=== PATIENT | male | born 1955 | race Two or more races ===

== ENCOUNTER 2019-05-19 07:40 | Emergency (ER) | payer MEDICARE ==
[~2019-05-19] VITALS: Ht 160 cm; Wt 58.0 kg
--- NOTE | 2019-05-19 08:18 | PHYS DOC ---
Adult General Chief Complaint Chief Complaint: BACK PAIN OR INJURY HPI HPI Patient is a 64 year old speaking male who presents secondary to complaint of back pain in the cervical and thoracic spine. He reportedly fell down 13 stairs approximately 1 week ago. He also reports feeling weak. He denies chest pain or shortness of breath, other extremity pain, numbness tingling or weakness, saddle anesthesia or loss of bowel or bladder control. Review of Systems Review of Systems All other systems were reviewed and found to be within normal limits, except as documented in this note. Physical Exam Physical Exam Constitutional: Well developed, well nourished, no acute distress, non-toxic appearance. [] HENT: Normocephalic, atraumatic, bilateral external ears normal, oropharynx moist, no oral exudates, nose normal. [] Eyes: PERRLA, EOMI, conjunctiva normal, no discharge. [] Neck: Normal range of motion, no tenderness, supple, no stridor. [] Cardiovascular:Heart rate regular rhythm, no murmur [] Lungs & Thorax: Bilateral breath sounds clear to auscultation [] Abdomen: Bowel sounds normal, soft, no tenderness, no masses, no pulsatile masses. [] Skin: Warm, dry, no erythema, no rash. [] Back: TTP cervical and thoracic spine. Extremities: No tenderness, no cyanosis, no clubbing, ROM intact, no edema. [] Neurologic: Alert and oriented X 3, normal motor function, normal sensory function, no focal deficits noted. [] Psychologic: Affect normal, judgement normal, mood normal. [] Current Patient Data Vital Signs Vital Signs Date Time Temp Pulse Resp B/P (MAP) Pulse Ox O2 Delivery O2 Flow Rate FiO2 05/19/19 07:47 99.4 95 18 140/71 (94) 94 Room Air 99.4 EKG EKG [] Radiology/Procedures Radiology/Procedures []THORACIC SPINE 3V, CERVICAL SPINE 5V History: Upper back pain. Cervical pain. Trauma. Technique: 5 views cervical spine and 2 views thoracic spine. Comparison: None. Findings: Cervical spine: Grade 1 anterolisthesis C5 on C6 and C6 on C7. Moderate multilevel degenerative disc changes most prominent C4-C5 and C5-C6. Normal vertebral body height. No fracture. Prevertebral soft tissues unremarkable. Normal alignment C1 on C2. Vascular calcifications. Chronic anterior wedging C7. C7-T1 articulation not well seen on lateral view due to overlying structures. Carious dentition. Thoracic spine: Normal vertebral body height and alignment. No fracture. Impression: 1. No acute osseous abnormality. Given history of trauma, if persistent clinical concern CT can further evaluate. 2. Moderate multilevel cervical spondylosis. 3. Grade 1 anterolisthesis C5 on C6 and C6 on C7. Course & Med Decision Making Course & Med Decision Making Pertinent Labs and Imaging studies reviewed. (See chart for details) 0817: This patient is seen for back pain after a fall on Wednesday. Will get cervical and thoracic x-rays. He is also encouraged to push fluids and he has given strict return precautions if he develops shortness of breath he is to return to the ER. Dragon Disclaimer Victor Hugo Disclaimer This electronic medical record was generated, in whole or in part, using a voice recognition dictation system. Departure Departure Impression: Primary Impression: Fall Additional Impressions: Cervical strain Thoracic myofascial strain Disposition: HOME, SELF-CARE Condition: STABLE Patient Instructions: Muscle Strain Additional Instructions: Please push fluids. Return for worsening symptoms or follow up with your doctor. Scripts Tizanidine Hcl (TIZANIDINE HCL) 4 Mg Tablet 4 MG PO TID PRN for MUSCLE SPASMS for 5 Days, #15 TAB Prov: NILE RINALDI DO 05/19/19 Problem Qualifiers NILE RINALDI DO May 19, 2019 08:18
[2019-05-19 08:50] VITALS: BP 142/73
--- NOTE | 2019-05-19 09:00 | RAD ---
THORACIC SPINE 3V, CERVICAL SPINE 5V History: Upper back pain. Cervical pain. Trauma. Technique: 5 views cervical spine and 2 views thoracic spine. Comparison: None. Findings: Cervical spine: Grade 1 anterolisthesis C5 on C6 and C6 on C7. Moderate multilevel degenerative disc changes most prominent C4-C5 and C5-C6. Normal vertebral body height. No fracture. Prevertebral soft tissues unremarkable. Normal alignment C1 on C2. Vascular calcifications. Chronic anterior wedging C7. C7-T1 articulation not well seen on lateral view due to overlying structures. Carious dentition. Thoracic spine: Normal vertebral body height and alignment. No fracture. Impression: 1. No acute osseous abnormality. Given history of trauma, if persistent clinical concern CT can further evaluate. 2. Moderate multilevel cervical spondylosis. 3. Grade 1 anterolisthesis C5 on C6 and C6 on C7. Electronically signed by: Malik Albrecht DO (05/19/2019 8:57 AM) [id number]
[2019-05-19] MEDS ORDERED: TIZA4TAB2 PO (09:08)
== END 2019-05-19 09:13 | disposition home or self-care (01) ==
LOC: ER 07:40
DX: S16.1XXA Strain of muscle, fascia and tendon at neck level, initial encounter (principal); S29.012A Strain of muscle and tendon of back wall of thorax, initial encounter; R53.1 Weakness; R06.02 Shortness of breath; W10.8XXA Fall (on) (from) other stairs and steps, initial encounter; Y93.89 Activity, other specified; Y92.89 Other specified places as the place of occurrence of the external cause; Y99.8 Other external cause status
CPT/HCPCS: 72050; 72072; 82962; 99284; 99285

== ENCOUNTER 2020-07-30 00:21 | Emergency (ER) | payer MEDICARE, MEDICAID ==
[~2020-07-30] VITALS: Ht 177.8 cm; Wt 75.0 kg
[~2020-07-30 00:21] MED LIST: TIZA4TAB2 PO
[2020-07-30 01:14] LABS: BASO # 0.1 x10^3/uL (0.0-0.2); BASO % 1 % (0-3); EOS # 0.3 x10^3/uL (0.0-0.7); EOS % 5 % (0-3); HEMATOCRIT 33.7 % (39.0-53.0); HEMOGLOBIN 11.5 g/dL (13.0-17.5); LYMPH # 1.8 x10^3/uL (1.0-4.8); LYMPH % 26 % (24-48); MEAN CORPUSCULAR HEMOGLOBIN 30 pg (25-35); MEAN CORPUSCULAR HGB CONC 34 g/dL (31-37); MEAN CORPUSCULAR VOLUME 89 fL (79-100); MONO # 0.8 x10^3/uL (0.0-1.1); MONO % 12 % (0-9); NEUT # 3.9 x10^3/uL (1.8-7.7); NEUT % 56 % (31-73); PLATELET COUNT 275 x10^3/uL (140-400); RED BLOOD COUNT 3.78 x10^6/uL (4.30-5.70); RED CELL DISTRIBUTION WIDTH 13.8 % (11.5-14.5); WHITE BLOOD COUNT 6.9 x10^3/uL (4.0-11.0)
--- NOTE | 2020-07-30 01:26 | RAD ---
XR CHEST 2V History: Reason: chest pain / Spl. Instructions: / History: Comparison: None. Findings: Ill-defined mid and bibasilar opacities. No pleural effusion. No pneumothorax. Normal heart size. Impression: 1. Ill-defined mid and bibasilar opacities, concerning for pneumonia including viral pneumonia. Adrian mmend follow-up. Electronically signed by: Malik Albrecht DO (07/30/2020 1:23 AM) [facility]
[2020-07-30 01:43] LABS: % BASOS 2 % (0-3); % EOS 4 % (0-5); % LYMPHS 21 % (24-48); % MONOS 4 % (0-10); % SEGS 69 % (35-66); PLT ESTIMATE ADEQUATE (ADEQUATE)
[2020-07-30 01:59] LABS: BILIRUBIN,URINE NEGATIVE (NEG); CLARITY,URINE CLEAR; COLOR,URINE YELLOW; NITRITE,URINE NEGATIVE (NEG); PH,URINE 7.5 (<5.0-8.0); PROTEIN,URINE NEGATIVE (NEG-TRACE); UROBILINOGEN,URINE 0.2 mg/dL (0.2 mg/dL)
[2020-07-30 02:05] LABS: BACTERIA,URINE 0 /HPF (0-FEW); RBC,URINE 0 /HPF (0-2); WBC,URINE 0 /HPF (0-4)
--- NOTE | 2020-07-30 02:06 | EKG ---
[facility] [address] [place] [address] Test Date: 2020-07-30 Test Time: 00:29:43 Pat Name: DK LILLY Department: Room: Gender: M Merchandise Handler: : [id number] Requested By: MARIA SANCHEZ Order Number: [id number] Reading MD: Measurements Intervals [place] Rate: 78 P: 24 IA: 160 QRS: -9 QRSD: 88 T: 38 QT: 380 QTc: 437 Interpretive Statements SINUS RHYTHM LEFTWARD AXIS OTHERWISE NORMAL ECG RI6.02 No previous ECG available for comparison
--- NOTE | 2020-07-30 02:37 | ED.ADGEN ---
Past Medical History Past Medical History: Diabetes-Type I, High Cholesterol, Hypertension Past Surgical History: No Surgical History Smoking Status: Never Smoker Alcohol Use: None General Adult EDM: Chief Complaint: LOWER EXT PAIN HPI: HPI: Patient is a 65-year-old male with past medical history of diabetes and hyperte nsion who presents to the emergency room with multiple complaints. Patient has had right-sided chest pain for the last 2 days that this kept him from eating. He denies any cough, shortness of breath, URI symptoms, fever, chills, sweats, nausea, vomiting. He states that he has aching in both of his legs that started at his hips and move down. He states this is what it feels like when his sugar or blood pressure are too high. He has been taking his medications. He states the pain in his legs feel like a constant ache and nothing seems to make it better or worse. Pain in his chest is an 8 out of 10 and constant but does occasionally flareup. Review of Systems: Review of Systems: Complete ROS is negative unless otherwise documented in HPI Current Medications: Current Medications Medications (Trade) Dose Ordered Sig/Tracy Start Time Stop Time Status Last Admin Dose Admin Dexamethasone Sodium Phosphate (Decadron) 10 mg 1X ONCE 07/30/20 05:00 07/30/20 05:01 DC 07/30/20 04:56 10 MG Info (CONTRAST GIVEN -- Rx MONITORING) 1 each PRN DAILY PRN 07/30/20 04:00 08/01/20 03:59 Iohexol (Omnipaque 350 Mg/ml) 100 ml 1X ONCE 07/30/20 04:00 07/30/20 04:01 DC 07/30/20 03:55 100 ML Labetalol HCl (Normodyne Iv Push) 10 mg 1X ONCE 07/30/20 03:00 07/30/20 03:01 DC 07/30/20 03:04 10 MG Multi-Ingredient Mouthwash/Gargle (Gi Cocktail) 20 ml 1X ONCE 07/30/20 05:00 07/30/20 05:01 DC 07/30/20 04:56 20 ML Allergies: Allergies: Allergies Coded Allergies Type Severity Reaction Last Updated Verified No Known Drug Allergies 07/30/20 No Physical Exam: PE: General: Awake, alert, NAD. Well Nourished, well hydrated. Cooperative HEENT: Atraumatic, EOMI, PERRL, airway patent, moist oral mucosa Neck: Supple, trachea midline Respiratory: CTA bilaterally, normal effort, no wheezing/crackles CV: RRR, no murmur, cap refill <2 GI: Soft, nondistended, nontender, no masses MSK: No obvious deformities Skin: Warm, dry, intact Neuro: A&O x3, speech NL, sensory and motor grossly intact, no focal deficits Psych: Normal affect, normal mood, not suicidal or homicidal Current Patient Data: Labs: Laboratory Tests Test 07/30/20 01:00 07/30/20 01:50 07/30/20 02:19 07/30/20 04:35 White Blood Count 6.9 x10^3/uL (4.0-11.0) Red Blood Count 3.78 x10^6/uL (4.30-5.70) L Hemoglobin 11.5 g/dL (13.0-17.5) L Hematocrit 33.7 % (39.0-53.0) L Mean Corpuscular Volume 89 fL (79-100) Mean Corpuscular Hemoglobin 30 pg (25-35) Mean Corpuscular Hemoglobin Concent 34 g/dL (31-37) Red Cell Distribution Width 13.8 % (11.5-14.5) Platelet Count 275 x10^3/uL (140-400) Neutrophils (%) (Auto) 56 % (31-73) Lymphocytes (%) (Auto) 26 % (24-48) Monocytes (%) (Auto) 12 % (0-9) H Eosinophils (%) (Auto) 5 % (0-3) H Basophils (%) (Auto) 1 % (0-3) Neutrophils # (Auto) 3.9 x10^3/uL (1.8-7.7) Lymphocytes # (Auto) 1.8 x10^3/uL (1.0-4.8) Monocytes # (Auto) 0.8 x10^3/uL (0.0-1.1) Eosinophils # (Auto) 0.3 x10^3/uL (0.0-0.7) Basophils # (Auto) 0.1 x10^3/uL (0.0-0.2) Segmented Neutrophils % 69 % (35-66) H Lymphocytes % 21 % (24-48) L Monocytes % 4 % (0-10) Eosinophils % 4 % (0-5) Basophils % 2 % (0-3) Platelet Estimate Adequate (ADEQUATE) Urine Collection Type Unknown Urine Color Yellow Urine Clarity Clear Urine pH 7.5 (<5.0-8.0) Urine Specific Depue <=1.005 (1.000-1.030) Urine Protein Negative mg/dL (NEG-TRACE) Urine Glucose (UA) 100 mg/dL (NEG) Urine Ketones (Stick) Negative mg/dL (NEG) Urine Blood Negative (NEG) Urine Nitrite Negative (NEG) Urine Bilirubin Negative (NEG) Urine Urobilinogen Dipstick 0.2 mg/dL (0.2 mg/dL) Urine Leukocyte Esterase Negative (NEG) Urine RBC 0 /HPF (0-2) Urine WBC 0 /HPF (0-4) Urine Squamous Epithelial Cells Occ /LPF Urine Bacteria 0 /HPF (0-FEW) D-Dimer (Antonietta) 1.25 ug/mlFEU (0.00-0.50) H Sodium Level 138 mmol/L (136-145) Potassium Level 4.2 mmol/L (3.5-5.1) Chloride Level 102 mmol/L (98-107) Carbon Dioxide Level 26 mmol/L (21-32) Anion Gap 10 (6-14) Blood Urea Nitrogen 13 mg/dL (8-26) Creatinine 0.7 mg/dL (0.7-1.3) Estimated GFR (Cockcroft-Gault) 112.5 BUN/Creatinine Ratio 19 (6-20) Glucose Level 149 mg/dL (70-99) H Calcium Level 8.7 mg/dL (8.5-10.1) Total Bilirubin 0.3 mg/dL (0.2-1.0) Aspartate Amino Transferase (AST) 34 U/L (15-37) Alanine Aminotransferase (ALT) 33 U/L (16-63) Alkaline Phosphatase 139 U/L (46-116) H Troponin I Quantitative < 0.017 ng/mL (0.000-0.055) HD-Lfu-U-Type Natriuretic Peptide 271 pg/mL (0-124) H Total Protein 7.1 g/dL (6.4-8.2) Albumin 3.4 g/dL (3.4-5.0) Albumin/Globulin Ratio 0.9 (1.0-1.7) L SARS-CoV-2 Antigen (Rapid) Negative (NEGATIVE) Laboratory Tests 07/30/20 01:00 Laboratory Tests 07/30/20 02:19 Vital Signs: Vital Signs Date Time Temp Pulse Resp B/P (MAP) Pulse Ox O2 Delivery O2 Flow Rate FiO2 07/30/20 03:55 76 184/91 (122) 99 Room Air 07/30/20 00:25 98.6 18 98.6 EKG: EKG: [] Heart Score: C/O Chest Pain: N/A Risk Factors: Risk Factors: DM, Current or recent (<one month) smoker, HTN, HLP, family history of CAD, obesity. Risk Scores: Score 0 - 3: 2.5% MACE over next 6 weeks - Discharge Home Score 4 - 6: 20.3% MACE over next 6 weeks - Admit for Clinical Observation Score 7 - 10: 72.7% MACE over next 6 weeks - Early Invasive Strategies Radiology/Procedures: Radiology/Procedures: [] Course & Med Decision Making: Course & Med Decision Making Pertinent Labs and Imaging studies reviewed. (See chart for details) Patient is a 65-year-old male who presents to the emergency room complaining of right-sided chest pain and bilateral leg pain. Patient does not have any swelling in his legs. His abdomen is soft and nontender. Pain is related to eating. Lungs are clear to auscultation bilaterally. Patient is hypertensive upon arrival and will be given labetalol. Work-up was ordered to evaluate patient's chest pain and leg pain including CBC, CMP, D-dimer, troponin. Patient has an elevated D-dimer. CT angio of the chest shows diffuse multifocal pneumonia and esophagitis. This could be related to atypical pneumonia or COVID-19. COVID-19 test was ordered. Patient is feeling significantly better. We will place him on steroids, azithromycin, Carafate. I discussed with him quarantining at home. Patient's test results and vitals while in the ED were fully reviewed and discussed with the patient. Patient is stable and at this time does not need admission to the hospital. We have discussed strict return precautions and the importance of following up with their Primary Care Physician. Patient stated understanding and was given an opportunity to ask any questions. Patient is in agreement with plan. Victor Hugo Disclaimer: Victor Hugo Disclaimer: This electronic medical record was generated, in whole or in part, using a voice recognition dictation system. COVID-19 Patient Risks: Age 65 or older: Yes PPE Use: Full PPE with N95 mask or PAPR: Yes Departure Departure Impression: Primary Impression: Chest pain Additional Impressions: Esophagitis Atypical pneumonia Person under investigation for COVID-19 Disposition: HOME / SELF CARE / HOMELESS Condition: IMPROVED Referrals: UNKNOWN PCP NAME (PCP) Patient Instructions: Esophagitis, Pneumonia, Adult Additional Instructions: Thank you for visiting [facility]. We appreciate you trusting us with your care. If any additional problems come up please don't hesitate to retu rn to visit us. Follow up with your primary care provider so they can plan additional care if needed and know about the problem that you had today. If symptoms worsen come back to the Emergency Department. Any concerning symptoms that start such as chest pain, shortness of air, weakness or numbness on one side of the body, running high fevers or any other concerning symptoms return to the ER. You have a viral syndrome which may include symptoms like muscle aches, fevers, chills, runny nose, cough, sneezing, sore throat, nausea, vomiting, or diarrhea. One of the potential viruses that you may have is SARS-CoV-2, the virus that causes COVID-19, also known as the Coronavirus. You are just as likely to have a different viral infection such as the common cold, flu, etc. Most patients with the Coronavirus have mild symptoms and recover on their own. Resting, staying hydrated, and sleep based on known cases can be helpful. As of todays visit, you are well enough to go home and treat your symptoms with oral fluids and over the counter medications. Coronavirus testing is not performed on most people with mild symptoms who are being discharged from the emergency department. If Coronavirus testing was performed today the results will not be available for possibly up to 3-4 days. If your result is positive you will be contacted. Please follow the following precautions at home: 1. Stay home except to get medical care. 2. As advised by the CDC, we recommend that you stay in your home and minimize contact with other people. We do not want you to spread the infection. 3. Those who are older or have significant medical issues may have more severe symptoms from this infection. We recommend self-isolation FOR AT LEAST 7 DAYS after your 1st day of symptoms. AFTER you feel better please wait AT LEAST ANOTHER WEEK before returning to regular activities and being around other peopl e. 4. IF you become sicker and have difficulty breathing, chest pain, are unable to eat/drink, severe vomiting, diarrhea, or weakness you may need to return to the Emergency Department. 5. You should restrict activities outside of your home, except for getting medical care. DO NOT go to work, school, or public areas. Avoid using public transportation, ride sharing, or taxis. 6. Separate yourself from other people in your home. You should use a separate bathroom if possible. 7. Avoid sharing personal household items such as dishes, cups, eating utensils, towels, etc. 8. Clean all high touch surfaces every day (door knobs, counter tops, etc). Use a household cleaning spray or wipe per label instructions. 9. Clean your hands often. Wash your hands with soap and water for at least 20 seconds. 10. Cover your mouth and nose when you cough or sneeze. 11. Throw used tissues in the trash and immediately wash your hands. For additional resources please visit the CDC website or the [facility] ([phone]), you may also call 211 for further information. Scripts Azithromycin (ZITHROMAX) 250 Mg Tablet 1 PKG PO UD, #6 TAB Prov: MARIA SANCHEZ MD 07/30/20 Prednisone (PREDNISONE) 50 Mg Tablet 1 TAB PO DAILY, #5 TAB Prov: MARIA SANCHEZ MD 07/30/20 Sucralfate (CARAFATE) 1 Gm Tablet 1 TAB PO QID for 30 Days, #120 TAB 0 Refills Prov: MARIA SANCHEZ MD 07/30/20 Problem Qualifiers MARIA SANCHEZ MD Jul 30, 2020 02:37
[2020-07-30 02:43] LABS: CALCIUM 8.7 mg/dL (8.5-10.1); CREATININE 0.7 mg/dL (0.7-1.3); GFR 112.5; POTASSIUM 4.2 mmol/L (3.5-5.1)
[2020-07-30 02:47] LABS: ALBUMIN 3.4 g/dL (3.4-5.0); ALBUMIN/GLOBULIN RATIO 0.9 (1.0-1.7); TOTAL BILIRUBIN 0.3 mg/dL (0.2-1.0); TOTAL PROTEIN 7.1 g/dL (6.4-8.2)
[2020-07-30] MEDS ORDERED: LABETALOL 20 MG/4 ML DISP.SYRIN. IVP ONE (03:00)
[2020-07-30] MEDS ORDERED: CONTRAST GIVEN. MC PRN (04:00)
[2020-07-30] MEDS ORDERED: IOHEXOL 350 MG/ML 100 ML VIAL. IV ONE (04:00)
--- NOTE | 2020-07-30 04:18 | RAD ---
CTA CHEST History: Chest pain. Technique: CT of the chest was performed with intravenous contrast. PE protocol. Maximum intensity pr ojection coronal and sagittal reconstructions were performed. Exposure: One or more of the following individualized dose reduction techniques were utilized for thi s examination: 1. Automated exposure control 2. Adjustment of the mA and/or kV according to patient size 3. Use of iterative reconstruction technique. Comparison: None Findings: Chest: No pulmonary embolism. No aortic aneurysm or dissection. Mild atheromatous plaque within the a cathy. No pathologic lymphadenopathy. Coronary artery calcifications. Mild distal esophageal wall thickening. Multifocal groundglass opacities most prominent within the inferior upper lobes and the bilateral low er lobes. No pleural effusion. No pneumothorax. Upper abdomen: The imaged upper abdomen is unremarkable. Bones: No pathologic osseous lesions. Impression: 1. No pulmonary embolism. 2. Multifocal groundglass opacities, may represent infectious or inflammatory process. Recommend fol low-up to ensure resolution. 3. Mild distal esophageal wall thickening, may relate to reflux or other esophagitis. Electronically signed by: Malik Albrecht DO (07/30/2020 4:15 AM) [facility]
[2020-07-30] MEDS ORDERED: LIDO:MAALOX 1:1 20 ML SINGLE DOSE. SWSW ONE (05:00)
[2020-07-30] MEDS ORDERED: DEXAMETHASONE SOD PHOS 4 MG/ML VIAL IVP ONE (05:00)
[2020-07-30] MEDS ORDERED: SUCR1TAB35 PO (05:15)
[2020-07-30] MEDS ORDERED: AZIT250T PO (05:15)
[2020-07-30] MEDS ORDERED: PRED50TA PO (05:15)
[2020-07-30 05:25] VITALS: BP 168/101
--- NOTE | 2020-07-30 12:03 | NUR ---
IP: Informed pt of negative covid test. Pt verbalized understanding.
== END 2020-07-30 05:30 | disposition home or self-care (01) ==
LOC: ER 00:21
DX: J18.9 Pneumonia, unspecified organism (principal); Z20.822 Contact with and (suspected) exposure to COVID-19; K20.90 Esophagitis, unspecified without bleeding; E78.00 Pure hypercholesterolemia, unspecified; E10.9 Type 1 diabetes mellitus without complications; I10 Essential (primary) hypertension
CPT/HCPCS: 36415; 71046; 71275; 80053; 81001; 83880; 84484; 85007; 85025; 85379; 87426; 93005; 96374; 96375; 99285; J1100; J3490; Q9967; U0003; U0005